=== PATIENT | female | born 1955 | race Caucasian/White ===

== ENCOUNTER → 2018-06-04 | Outpatient (CLI) | payer OTHER ==
[~2018-06-04] MED LIST: AMBIEN 10 MG TA10 MG PO; CYCLOBENZAPRINE10 MG PO; GLUCOPHAGE1000 MG PO; GLUCOTROL5 MG PO; HYDROCODON-ACE1 EACH PO; MELOXICAM7.5 MG PO; SIMVASTATIN20 MG PO; XANAX 0.5 MG0.5 M1 PO
== END ==
LOC: M.RAD 15:56
DX: Z12.31 Encounter for screening mammogram for malignant neoplasm of breast (principal)

== ENCOUNTER → 2020-12-12 | Outpatient (CLI) | payer OTHER | LOC: M.RAD 12:41 | PROVIDERS: ATTEND Family Medicine | DX: Z12.31 Encounter for screening mammogram for malignant neoplasm of breast (principal); N64.89 Other specified disorders of breast ==